=== PATIENT | male | born 1960 | race Hispanic/Latino ===

== ENCOUNTER 2021-01-11 12:59 | Emergency (ER) | payer OTHER, SELFPAY ==
--- NOTE | 2021-01-11 15:09 | RAD REPORT ---
EXAM DESCRIPTION: RAD - Ankle Left 3 View - 01/11/2021 2:42 pm CLINICAL HISTORY: pain/post fall COMPARISON: No comparisons FINDINGS: No fracture, dislocation or periosteal reaction. No joint effusion seen. No joint space na rrowing. Degenerative spurring changes are present at the talonavicular joint as well as the navicula r articulation with the cuneiform bones. Spurring is present at the Achilles attachment to the calcan eus. Anterior and lateral soft tissue swelling is present. IMPRESSION: Degenerative spurring changes are present without fracture identifiable. Soft tissue swelling around the anterior and lateral margins of the ankle joint.
--- NOTE | 2021-01-11 15:11 | RAD REPORT ---
EXAM DESCRIPTION: RAD - Foot Left 3 View - 01/11/2021 2:42 pm CLINICAL HISTORY: pain/postfall COMPARISON: Ankle Left 3 View dated 01/11/2021 FINDINGS: No fracture, dislocation or periosteal reaction. No acute or destructive bony process. De generative spurring changes are present along the articular margins of the talonavicular and navicula r medial cuneiform bones. Minimal plantar spur is present. There is spurring at the Achilles attachme nt to the calcaneus. No air or foreign body in the soft tissues. Anterior soft tissue swelling at the ankle and mid foot a long with lateral ankle soft tissue swelling. IMPRESSION: Degenerative changes are present in the foot as detailed with no acute bone finding. Soft tissue swelling without air or foreign body seen.
--- NOTE | 2021-01-11 16:29 | EDPHYS ---
Physician Documentation [facility] Name: Martha Wilson Age: 60 yrs Sex: Male : 1960 Arrival Date: 01/11/2021 Time: 13:01 Bed 25 Private MD: ED Physician Wilner Luevano HPI: 01/11 13:08 This 60 yrs old Male presents to ER via Wheelchair with complaints of Ankle jmm Injury. 13:08 The patient presents with an injury, pain. Onset: The symptoms/episode began/occurred jmm acutely, just prior to arrival. Associated signs and symptoms: Pertinent positives: swelling. Modifying factors: The symptoms are alleviated by nothing, the symptoms are aggravated by weight bearing, movement. The patient has not experienced similar symptoms in the past. This is a 60-year-old male with history of hypertension, diabetes mellitus the presents emerge department with complaints of left ankle pain after miss stepping and rolling her ankle. Patient denies hitting her head or other injury. Historical: - Allergies: 13:07 No Known Allergies; aa5 - PMHx: 13:07 Hypertensive disorder; Diabetes mellitus; aa5 - Immunization history:: Client reports receiving the 2nd dose of the Covid vaccine. - Social history:: Smoking status: Patient denies any tobacco usage or history of. ROS: 13:08 Constitutional: Negative for fever, chills, and weight loss, Cardiovascular: Negative jmm for chest pain, palpitations, and edema, Respiratory: Negative for shortness of breath, cough, wheezing, and pleuritic chest pain. 13:08 MS/extremity: Positive for injury or acute deformity, pain, swelling. 13:08 All other systems are negative. Exam: 13:08 Constitutional: This is a well developed, well nourished patient who is awake, alert, jmm and in no acute distress. Head/Face: atraumatic. Eyes: EOMI, no conjunctival erythema appreciated ENT: Moist Mucus Membranes Neck: Trachea midline, Supple Chest/axilla: Normal chest wall appearance and motion. Cardiovascular: Regular rate and rhythm. No edema appreciated Respiratory: Normal respirations, no respiratory distress appreciated Abdomen/GI: Non distended, soft Back: Normal ROM Skin: General appearance color normal 13:08 Musculoskeletal/extremity: ROM: intact in all extremities, Swelling noted to the left ankle, full dorsalis pulse, compartments are soft, left lateral malleolar pain on palpation, left fifth metatarsal pain at the base., Neurovascular intact. 13:08 Skin: Appearance: Color: normal in color. Vital Signs: 13:05 BP 161 / 83; Pulse 87; Resp 16 S; Temp 97.4(TE); Pulse Ox 98% on R/A; Weight 64.86 kg aa5 (R); Height 5 ft. 0 in. (152.40 cm) (R); 15:15 BP 152 / 84; Pulse 80; Resp 18; Pulse Ox 99% on R/A; sl2 16:45 BP 148 / 80; Pulse 85; Resp 18; Temp 97.8(O); Pulse Ox 99% on R/A; sl2 13:05 Body Mass Index 27.93 (64.86 kg, 152.40 cm) aa5 MDM: 15:[address] [facility] 16:27 Data reviewed: vital signs, nurses notes. Counseling: I had a detailed discussion with [facility] the patient and/or guardian regarding: the historical points, exam findings, and any diagnostic results supporting the discharge/admit diagnosis, radiology results, the need for outpatient follow up, to return to the emergency department if symptoms worsen or persist or if there are any questions or concerns that arise at home. 01/11 13:08 Order name: Ankle Left 3 View XRAY; Complete Time: 15:12 aa 01/11 13:08 Order name: Foot Left 3 View XRAY; Complete Time: 15:29 [facility] 01/11 15:42 Order name: Posterior Orthoglass Ankle Splint: short leg; Complete Time: 17:[address] [facility] 01/11 15:42 Order name: Crutches; Complete Time: 17:[address] [facility] Administered Medications: 17:46 Not Given (Patient Refused): [place] (HYDROcodone-acetaminophen) 10 mg-325 mg 1 tabs PO sl2 once; RASS on ADMIN: Combtv4, Very Agttd3, Agttd2, Rstlss1, AlertClm0, Drwsy-1, Lt Sdtn-2, Mod Sdtn-3, Dp Sdtn-4, UnArsble-5 Disposition: 18:32 Co-signature as Attending Physician, Wilner Luevano MD. pkl Disposition Summary: 01/11/21 16:28 Discharge Ordered Location: Home [facility] Condition: Stable jm Diagnosis - Sprain of ankle jm Followup: [facility] - With: Nimesh Damon MD - When: 2 - 3 days - Reason: Recheck today's complaints, Continuance of care, Re-evaluation by your physician Discharge Instructions: - Discharge Summary Sheet jm - Ankle Sprain [facility] Forms: - Medication Reconciliation Form [facility] - Thank You Letter [facility] - Antibiotic Education [facility] - Prescription Opioid Use [facility] Prescriptions: - orphenadrine citrate 100 mg Oral Tablet Sustained Release - take 1 tablet by ORAL route 2 times per day As needed; 20 tablet; Refills: 0, jmm Product Selection Permitted Signatures: Dispatcher [employer] Wilner Nazario MD MD pkl Mickail, Joel, PA PA jmm Calderon, Audri, RN RN aa5 June King RN sl2
--- NOTE | 2021-01-11 16:29 | ER ---
Nurse's Notes [facility] Name: Martha Wilson Age: 60 yrs Sex: Male : 1960 Arrival Date: 01/11/2021 Time: 13:01 Bed 25 [facility] MD: Diagnosis: Sprain of ankle Presentation: 01/11 13:05 Chief complaint: Patient states: twisted her ankle and fell today. Pt c/o pain to left aa5 ankle and left foot. Denies any other injuries. Coronavirus screen: At this time, the client does not indicate any symptoms associated with coronavirus-19. Ebola Screen: No symptoms or risks identified at this time. Initial Sepsis Screen: Does the patient meet any 2 criteria? No. Patient's initial sepsis screen is negative. Does the patient have a suspected source of infection? No. Patient's initial sepsis screen is negative. Risk Assessment: Do you want to hurt yourself or someone else? Patient reports no desire to harm self or others. Onset of symptoms was January 11, 2021. 13:05 Acuity: EMERSON 4 aa5 13:05 Method Of Arrival: Wheelchair aa5 Historical: - Allergies: 13:07 No Known Allergies; aa5 - PMHx: 13:07 Hypertensive disorder; Diabetes mellitus; aa5 - Immunization history:: Client reports receiving the 2nd dose of the Covid vaccine. - Social history:: Smoking status: Patient denies any tobacco usage or history of. Screenin:12 Abuse screen: Denies threats or abuse. Nutritional screening: No deficits noted. sl2 Tuberculosis screening: No symptoms or risk factors identified. Never had TB. Fall Risk None identified. No fall in past 12 months (0 pts). No secondary diagnosis (0 pts). No IV (0 pts). Ambulatory Aid- None/Bed Rest/Nurse Assist (0 pts). Gait- Impaired (20 pts.). Mental Status- Oriented to own ability (0 pts). 15:12 Fall Risk Total Tobar Fall Scale indicates No Risk (0-24 pts). sl2 Assessment: 15:12 General: Appears in no apparent distress. uncomfortable, well groomed, well developed, sl2 Behavior is calm, cooperative, appropriate for age. 15:12 Pain: Complains of pain in Left ankle, left foot Pain does not radiate. Pain currently sl2 is 5 out of 10 on a pain scale. at worst was 8 out of 10 on a pain scale. Quality of pain is described as aching, sharp, Pain began. Neuro: No deficits noted. Cardiovascular: No deficits noted. Respiratory: No deficits noted. GI: No deficits noted. : No deficits noted. EENT: No deficits noted. EENT: No deficits noted. Derm: No deficits noted. Musculoskeletal: Reports pain in left foot and left ankle. Vital Signs: 13:05 BP 161 / 83; Pulse 87; Resp 16 S; Temp 97.4(TE); Pulse Ox 98% on R/A; Weight 64.86 kg aa5 (R); Height 5 ft. 0 in. (152.40 cm) (R); 15:15 BP 152 / 84; Pulse 80; Resp 18; Pulse Ox 99% on R/A; sl2 16:45 BP 148 / 80; Pulse 85; Resp 18; Temp 97.8(O); Pulse Ox 99% on R/A; sl2 13:05 Body Mass Index 27.93 (64.86 kg, 152.40 cm) aa5 ED Course: 13:01 Patient arrived in ED. as 13:05 Arm band placed on. aa5 13:06 Triage completed. aa5 14:42 Ankle Left 3 View XRAY In Process Unspecified. EDMS 14:42 Foot Left 3 View XRAY In Process Unspecified. EDMS 15:03 Bello Hatch PA is PHCP. [facility] 15:03 Wilner Luevano MD is Attending Physician. [facility] 15:12 Patient has correct armband on for positive identification. Placed in gown. Bed in low sl2 position. Call light in reach. Side rails up X2. Adult w/ patient. 15:12 No provider procedures requiring assistance completed. Patient did not have IV access sl2 during this emergency room visit. 15:29 June King, ADORE is Primary Nurse. sl2 16:28 Nimesh Damon MD is Referral Physician. [facility] Administered Medications: 17:46 Not Given (Patient Refused): [place] (HYDROcodone-acetaminophen) 10 mg-325 mg 1 tabs PO sl2 once; RASS on ADMIN: Combtv4, Very Agttd3, Agttd2, Rstlss1, AlertClm0, Drwsy-1, Lt Sdtn-2, Mod Sdtn-3, Dp Sdtn-4, UnArsble-5 Outcome: 16:28 Discharge ordered by . paloma 17:44 Discharged to home via wheelchair, with crutches, with family. sl2 17:44 Condition: stable 17:44 Discharge instructions given to patient, family, Instructed on discharge instructions, follow up and referral plans. no drinking with medication, medication usage, Demonstrated understanding of instructions, follow-up care, medications, Prescriptions given X 1. 17:45 Patient left the ED. sl2 Signatures: Dispatcher [employer] EDMS Bello Hatch PA PA jmm Martinez, Amelia as Calderon, Audri, RN RN aa5 June King RN RN sl2 Corrections: (The following items were deleted from the chart) 13:08 13:05 Chief complaint: Patient states: twisted her ankle today. Pt c/o pain to left aa5 ankle and left foot. Denies any other injuries. aa5
[2021-01-11 17:59] VITALS: BP 161/83; TEMP 97.4; O2SAT 98
== END 2021-01-11 17:45 | disposition home or self-care (01) ==
LOC: ER 12:59
PROC: 2W3RX1Z Immobilization of Left Lower Leg using Splint (ICD-10-PCS; principal; 2021-01-11)
DX: S93.402A Sprain of unspecified ligament of left ankle, initial encounter (principal); W01.0XXA Fall on same level from slipping, tripping and stumbling without subsequent striking against object, initial encounter
CPT/HCPCS: 99283

== ENCOUNTER 2023-02-09 06:48 | Emergency (ER) | payer SELFPAY ==
--- OUTSIDE RECORDS SUMMARY | 2023-02-09 06:52 | XMS REPORT | Continuity of Care Document ---
Author Name Unknown Address [address] [facility] [address] [place] [address] [facility] [address] [facility] [address] [place] [address] Care Team Providers Care Account Executive Trainee Name Role Phone Gunner [place], [facility] Primary Care Physician [phone] Allergies, Adverse Reactions, Alerts Allergy Name Allergy Type Status Severity Reaction(s) Onset Date Inactive Date Treating Clinician Comments Source [place] - Intra[facility] o[facility] to adverse reaction to drug Active 09-13 00:00: 00 Medications Ordered Medication Name Filled Medication Name Start Date Stop Date Current Medication? Ordering Clinician Indication Dosage Frequency Signature (SIG) Comments Components Source Dose Unknown 10-05 00:00: 00 No losartan 100 mg tablet 10-05 00:00: 00 No 1mg Dose Unknown 10-05 00:00: 00 No losartan 50 mg tablet 10-05 00:00: 00 No 1mg losartan 25 mg tablet 10-05 00:00: 00 No 1mg losartan 50 mg tablet 10-05 00:00: 00 No 1mg Dose Unknown 10-05 00:00: 00 No Dose Unknown 10-05 00:00: 00 No metformin 850 mg tablet 10-05 00:00: 00 No 1mg atorvastati n 80 mg tablet 10-05 00:00: 00 No 1mg gabapentin 300 mg capsule 10-05 00:00: 00 No 1mg TAKE 1 TABLET TWICE DAILY. 10-05 00:00: 00 No 5 TAKE 1 TABLET 3 TIMES DAILY WITH MEALS. 10-05 00:00: 00 No 850 Dose Unknown 10-05 00:00: 00 No amlodipine 5 mg tablet 8 00:00: 00 No 1mg losartan 100 mg tablet 10-05 00:00: 00 No 1mg amlodipine 5 mg tablet 10-05 00:00: 00 No 1mg losartan 50 mg tablet 10-05 00:00: 00 No 1mg losartan 25 mg tablet 10-05 00:00: 00 No 1mg losartan 50 mg tablet 10-05 00:00: 00 No 1mg glipizide 5 mg tablet 10-05 00:00: 00 No 1mg glipizide 5 mg tablet 10-05 00:00: 00 No 1mg metformin 850 mg tablet 10-05 00:00: 00 No 1mg atorvastati n 80 mg tablet 10-05 00:00: 00 No 1mg gabapentin 300 mg capsule 10-05 00:00: 00 No 1mg TAKE 1 TABLET TWICE DAILY. 10-05 00:00: 00 No 5 TAKE 1 TABLET 3 TIMES DAILY WITH MEALS. 10-05 00:00: 00 No 850 TAKE 1 TABLET TWICE DAILY. 10-05 00:00: 00 No 5 losartan 100 mg tablet 1- 00:00: 00 No 1mg amlodipine 5 mg tablet 1-05 00:00: 00 No 1mg glipizide 5 mg tablet 1-05 00:00: 00 No 1mg metformin 850 mg tablet 1-05 00:00: 00 No 1mg atorvastati n 80 mg tablet 1- 00:00: 00 No 1mg losartan 100 mg tablet 1-05 00:00: 00 No 1mg amlodipine 5 mg tablet 1- 00:00: 00 No 1mg glipizide 5 mg tablet 1-05 00:00: 00 No 1mg metformin 850 mg tablet 1-05 00:00: 00 No 1mg atorvastati n 80 mg tablet 2022-0 1-05 00:00: 00 No 1mg losartan 100 mg tablet 2020-03 2- 00:00: 00 No 1mg amlodipine 5 mg tablet 2020-03 2- 00:00: 00 No 1mg glipizide 5 mg tablet 2020-03 2- 00:00: 00 No 1mg metformin 850 mg tablet 2020-03 2 00:00: 00 No 1mg atorvastati n 80 mg tablet 2020-03 2- 00:00: 00 No 1mg losartan 100 mg tablet 2020-03 2 00:00: 00 No 1mg amlodipine 5 mg tablet 2020-03 2 00:00: 00 No 1mg glipizide 5 mg tablet 2020-03 2 00:00: 00 No 1mg metformin 850 mg tablet 2020-03 2 00:00: 00 No 1mg atorvastati n 80 mg tablet 2020-03 2 00:00: 00 No 1mg losartan 50 mg tablet 2020-03 0-18 00:00: 00 No 1mg losartan 25 mg tablet 2020-03 0-18 00:00: 00 No 1mg atorvastati n 80 mg tablet 2020-03 0-18 00:00: 00 No 1mg losartan 50 mg tablet 2020-03 0-18 00:00: 00 No 1mg losartan 25 mg tablet 2020-03 0-18 00:00: 00 No 1mg atorvastati n 80 mg tablet 2020-03 0-18 00:00: 00 No 1mg glipizide 5 mg tablet 2020-03 0-04 00:00: 00 No 1mg losartan 50 mg tablet 2020-03 0-04 00:00: 00 No 1mg metformin 850 mg tablet 2020-03 0-04 00:00: 00 No 1mg gabapentin 300 mg capsule 2020-03 0-04 00:00: 00 No 1mg glipizide 5 mg tablet 2020-03 0-04 00:00: 00 No 1mg losartan 50 mg tablet 2020-03 0-04 00:00: 00 No 1mg metformin 850 mg tablet 2020-03 0-04 00:00: 00 No 1mg gabapentin 300 mg capsule 2020-03 0-04 00:00: 00 No 1mg losartan 25 mg tablet 08-30 00:00: 00 No 1mg losartan 25 mg tablet 08-30 00:00: 00 No 1mg glipizide 5 mg tablet 08-22 00:00: 00 No 1mg Macrobid 100 mg capsule 08-22 00:00: 00 No 1mg glipizide 5 mg tablet 08-22 00:00: 00 No 1mg Macrobid 100 mg capsule 08-22 00:00: 00 No 1mg lisinopril 40 mg tablet 08-19 00:00: 00 No 1mg lisinopril 40 mg tablet 08-19 00:00: 00 No 1mg losartan 25 mg tablet 08-19 00:00: 00 No 1mg metformin 850 mg tablet 08-19 00:00: 00 No 1mg atorvastati n 80 mg tablet 08-19 00:00: 00 No 1mg gabapentin 300 mg capsule 08-19 00:00: 00 No 1mg losartan 25 mg tablet 08-19 00:00: 00 No 1mg metformin 850 mg tablet 08-19 00:00: 00 No 1mg atorvastati n 80 mg tablet 08-19 00:00: 00 No 1mg gabapentin 300 mg capsule 08-19 00:00: 00 No 1mg atorvastati n 80 mg tablet -17 00:00: 00 No 1mg atorvastati n 80 mg tablet -17 00:00: 00 No 1mg lisinopril 40 mg tablet 3-15 00:00: 00 No 1mg atorvastati n 20 mg tablet 3-15 00:00: 00 No 1mg metformin 850 mg tablet 3-15 00:00: 00 No 1mg gabapentin 300 mg capsule 3-15 00:00: 00 No 1mg lisinopril 40 mg tablet 3-15 00:00: 00 No 1mg atorvastati n 20 mg tablet 3-15 00:00: 00 No 1mg metformin 850 mg tablet 05-17 00:00: 00 No 1mg gabapentin 300 mg capsule 05-17 00:00: 00 No 1mg metformin 850 mg tablet 2019-03 00:00: 00 No 1mg metformin 850 mg tablet 2019-03 00:00: 00 No 1mg metformin 850 mg tablet 2019-03 00:00: 00 No 1mg metformin 850 mg tablet 2019-03 00:00: 00 No 1mg gabapentin 300 mg capsule 2019-03 00:00: 00 No 1mg lisinopril 40 mg tablet 2019-03 00:00: 00 No 1mg gabapentin 300 mg capsule 2019-03 00:00: 00 No 1mg lisinopril 40 mg tablet 2019-03 00:00: 00 No 1mg atorvastati n 20 mg tablet 2019-03 020 00:00: 00 No 1mg atorvastati n 20 mg tablet 2019-03 020 00:00: 00 No 1mg lisinopril 20 mg tablet 2019-03 017 00:00: 00 No 1mg metformin 850 mg tablet 2019-03 017 00:00: 00 No 1mg metformin 850 mg tablet 2019-03 017 00:00: 00 No 1mg gabapentin 100 mg capsule 2019-03 017 00:00: 00 No 1mg lisinopril 20 mg tablet 2019-03 017 00:00: 00 No 1mg metformin 850 mg tablet 2019-03 017 00:00: 00 No 1mg metformin 850 mg tablet 2019-03 017 00:00: 00 No 1mg gabapentin 100 mg capsule 2019-03 017 00:00: 00 No 1mg Vital Signs Vital Name Observation Time Observation Value Comments S ource BP Systolic 2022-01-02 08:18:00 148 mm[Hg] BP Diastolic 2022-01-02 08:18:00 81 mm[Hg] Weight Measured 2022-01-02 08:18:00 148.60 pounds Height Measured 2022-01-02 08:18:00 61.02 inches Body Temperature 2022-01-02 08:18:00 97.30 degrees Heart Rate 2022-01-02 08:18:00 79.00 /min Respiratory Rate 2022-01-02 08:18:00 16.00 /min BP Systolic 2021-10-05 08:08:00 186 mm[Hg] BP Diastolic 2021-10-05 08:08:00 84 mm[Hg] Weight Measured 2021-10-05 08:08:00 148.20 pounds Height Measured 2021-10-05 08:08:00 61.02 inches Body Temperature 2021-10-05 08:08:00 98.30 degrees Heart Rate 2021-10-05 08:08:00 78.00 /min Respiratory Rate 2021-10-05 08:08:00 18.00 /min BP Systolic 2021-03-09 14:47:00 148.8 mm[Hg] BP Diastolic 2021-03-09 14:47:00 80 mm[Hg] Weight Measured 2021-03-09 14:47:00 146.40 pounds Height Measured 2021-03-09 14:47:00 61.02 inches Body Temperature 2021-03-09 14:47:00 98.00 degrees Heart Rate 2021-03-09 14:47:00 91.00 /min Respiratory Rate 2021-03-09 14:47:00 20.00 /min Height Measured 2021-02-14 16:21:00 61.02 inches Body Temperature 2021-02-14 16:21:00 98.20 degrees Heart Rate 2021-02-14 16:21:00 85.00 /min Respiratory Rate 2021-02-14 16:21:00 21.00 /min BP Systolic 2021-02-14 16:21:00 165 mm[Hg] BP Diastolic 2021-02-14 16:21:00 72 mm[Hg] Weight Measured 2021-02-14 16:21:00 149.20 pounds BP Systolic 2020-12-20 13:11:00 165 mm[Hg] BP Diastolic 2020-12-20 13:11:00 90 mm[Hg] Weight Measured 2020-12-20 13:11:00 146.00 pounds Height Measured 2020-12-20 13:11:00 61.02 inches Body Temperature 2020-12-20 13:11:00 98.40 degrees Heart Rate 2020-12-20 13:11:00 90.00 /min Respiratory Rate 2020-12-20 13:11:00 17.00 /min BP Systolic 2020-12-10 08:08:00 167 mm[Hg] BP Diastolic 2020-12-10 08:08:00 84 mm[Hg] Weight Measured 2020-12-10 08:08:00 143.20 pounds Height Measured 2020-12-10 08:08:00 61.02 inches Body Temperature 2020-12-10 08:08:00 98.30 degrees Heart Rate 2020-12-10 08:08:00 87.00 /min Respiratory Rate 2020-12-10 08:08:00 17.00 /min BP Systolic 2020-12-06 16:30:00 187 mm[Hg] BP Diastolic 2020-12-06 16:30:00 83 mm[Hg] Weight Measured 2020-12-06 16:30:00 147.20 pounds Height Measured 2020-12-06 16:30:00 61.02 inches Body Temperature 2020-12-06 16:30:00 98.00 degrees Heart Rate 2020-12-06 16:30:00 99.00 /min Respiratory Rate 2020-12-06 16:30:00 17.00 /min BP Systolic 2020-08-30 13:59:00 150 mm[Hg] BP Diastolic 2020-08-30 13:59:00 72 mm[Hg] Weight Measured 2020-08-30 13:59:00 143.20 pounds Height Measured 2020-08-30 13:59:00 61.02 inches Body Temperature 2020-08-30 13:59:00 98.20 degrees Heart Rate 2020-08-30 13:59:00 98.00 /min Respiratory Rate 2020-08-30 13:59:00 24.00 /min BP Systolic 2020-08-19 13:21:00 157 mm[Hg] BP Diastolic 2020-08-19 13:21:00 88 mm[Hg] Weight Measured 2020-08-19 13:21:00 142.20 pounds Height Measured 2020-08-19 13:21:00 61.02 inches Body Temperature 2020-08-19 13:21:00 98.40 degrees Heart Rate 2020-08-19 13:21:00 94.00 /min Respiratory Rate 2020-08-19 13:21:00 20.00 /min BP Systolic 2020-05-17 13:33:00 157 mm[Hg] BP Diastolic 2020-05-17 13:33:00 73 mm[Hg] Weight Measured 2020-05-17 13:33:00 139.20 pounds Height Measured 2020-05-17 13:33:00 61.02 inches Body Temperature 2020-05-17 13:33:00 99.50 degrees Heart Rate 2020-05-17 13:33:00 89.00 /min Respiratory Rate 2020-05-17 13:33:00 18.00 /min BP Systolic 2020-01-10 13:13:00 162 mm[Hg] BP Diastolic 2020-01-10 13:13:00 80 mm[Hg] Weight Measured 2020-01-10 13:13:00 136.00 pounds Height Measured 2020-01-10 13:13:00 61.02 inches Body Temperature 2020-01-10 13:13:00 98.70 degrees Heart Rate 2020-01-10 13:13:00 96.00 /min Respiratory Rate 2020-01-10 13:13:00 17.00 /min Plan of Care Planned Activity Planned Date Details Comments Source Goal Plan of Care Note [code = 85185-4] Goal Plan of Care Note [code = 65814-4] Goal Plan of Care Note [code = 57248-7] Goal Plan of Care Note [code = 62580-6] Goal Plan of Care Note [code = 97260-1] Goal Plan of Care Note [code = 96967-9] Goal Plan of Care Note [code = 28497-9] Goal Plan of Care Note [code = 20325-3] Goal Plan of Care Note [code = 22038-8] Goal Plan of Care Note [code = 30530-7] Goal Plan of Care Note [code = 96528-8] Goal Plan of Care Note [code = 11629-1] Goal Plan of Care Note [code = 78483-0] Goal Plan of Care Note [code = 23621-3] Goal Plan of Care Note [code = 31347-3] Goal Plan of Care Note [code = 95838-2] Goal Plan of Care Note [code = 47769-4] Goal Plan of Care Note [code = 09831-5] Goal Plan of Care Note [code = 31295-9] Goal Plan of Care Note [code = 94119-3] Goal Plan of Care Note [code = 44061-3] Goal Plan of Care Note [code = 08003-3] Goal Plan of Care Note [code = 84824-3] Goal Plan of Care Note [code = 19884-6] Goal Plan of Care Note [code = 93984-2] Goal Plan of Care Note [code = 56523-2] Goal Plan of Care Note [code = 96182-9] Goal Plan of Care Note [code = 37942-6] Encounters Start Date/Time End Date/Time Encounter Type Admission Type Attending [facility] Facility Care Department Encounter ID Source 2022-12-14 13:33:52 2022-12-14 13:33:52 Outpatient [facility] [id number] Domingo Singh 2022-12-12 08:00:18 2022-12-12 08:00:18 Outpatient [id number] Domingo Singh 2022-12-11 16:06:22 2022-12-11 16:06:22 Outpatient [id number] Domingo Singh 2022-07-06 14:53:34 2022-07-06 14:53:34 Outpatient [id number] Domingo Singh 2022-06-27 14:50:54 2022-06-27 14:50:54 Outpatient [facility] [id number] Domingo Reyes Francisco 2022-06-26 16:25:02 2022-06-26 16:25:02 Outpatient [id number] Domingo Singh 2022-04-04 07:59:52 2022-04-04 07:59:52 Outpatient [facility] [id number] Domingo Singh 2022-02-07 13:22:51 2022-02-07 13:22:51 Outpatient [facility] [id number] Domingo Singh 2022-01-06 14:35:04 2022-01-06 14:35:04 Outpatient [id number] Domingo Singh 2022-01-02 08:12:41 2022-01-02 08:12:41 Outpatient [facility] [id number] Domingo Singh 2022-01-02 00:00:00 2022-01-02 00:00:00 Outpatient Visit [id number] 2021-10-05 00:00:00 2021-10-05 00:00:00 Outpatient Visit [id number] Results Test Description Test Time Test Comments Results Result Co mments Source LIPID [id number] 08:14:40* Test Item Value Reference Range Interpretation Comme nts CHOLESTEROL (test code = 2210) 177 MG/DL <200 TRIGLYCERIDES (test code = 2232) 119 MG/DL <150 HDL CHOLESTEROL (test code = 2220) 58 MG/DL >39 CALC LDL CHOL (test code = 2237) 97 MG/DL <100 NOTE: CALCULATED LDL IS BASED ON CARL-PADILLA METHOD WHICHINCLUDES ADJUSTABLE TRIGLYCERIDE:VLDL CHOLESTEROL RATIO.THIS FACTOR VARIES BY MEASURED TRIGLYCERIDE AND NON-HDLCHOLESTEROL CONCENTRATIONS WITH INCREASED CALCULATED LDL SEENIN HIGHER TRIGLYCERIDE OR LOWER NON-HDL SPECIMENS. FOR MOREINFORMATION, SEE CLIENT ANNOUNCEMENT AT [email or web address] RISK RATIO LDL/HDL (test code = 2238) 1.67 RATIO <3.22 HEMOGLOBIN [id number] 04:03:15* Test Item Value Reference Range Interpretation Comme nts HEMOGLOBIN A1c (test code = 80840) 10.6 % 4.2-5.6 [facility] [employer] GUIDELINES FOR HGB A1C: PREDIABETES/INCREASED RISK . . . . . . . 5.7-6.4% DIAGNOSIS OF DIABETES . . . . . . . . . >=6.5% WITH CONFIRMATION OR APPROPRIATE SYMPTOMS NOTE: ASSAY MAY BE AFFECTED BY HEMOGLOBINOPATHIES (SICKLE CELL ANEMIA, S-C DISEASE, OTHERS) OR ARTIFICIALLY LOWERED BY DECREASED RED CELL SURVIVAL (HEMOLYTIC ANEMIAS, BLOOD LOSS, ETC.). CONSIDER ALTERNATE TESTING OR LABORATORY CONSULTATION. UNLESS OTHERWISE INDICATED, ALL TESTING PERFORMED AT [facility] [address] [place] [address] WATER PROJECT MANAGER: PETER ISABEL M.D. CLIA NUMBER [id number] [place]. [id number] HEMOGLOBIN [id number] 04:31:47* Test Item Value Reference Range Interpretation Comme nts HEMOGLOBIN A1c (test code = 05272) 9.9 % 4.2-5.6 H [employer] GUIDELINES FOR HGB A1C: PREDIABETES/INCREASED RISK . . . . . . . 5.7-6.4% DIAGNOSIS OF DIABETES . . . . . . . . . >=6.5% WITH CONFIRMATION OR APPROPRIATE SYMPTOMS NOTE: ASSAY MAY BE AFFECTED BY HEMOGLOBINOPATHIES (SICKLE CELL ANEMIA, S-C DISEASE, OTHERS) OR ARTIFICIALLY LOWERED BY DECREASED RED CELL SURVIVAL (HEMOLYTIC ANEMIAS, BLOOD LOSS, ETC.). CONSIDER ALTERNATE TESTING OR LABORATORY CONSULTATION. ALBUMIN/CREATININE RATIO, URINE, [id number] 04:16:19* Test Item Value Reference Range Interpretation Comme nts CREATININE, URINE, CONC. (test code = 2072) 17.6 MG/DL NOT ESTAB ALBUMIN, URINE, RANDOM (test code = 20618) <0.2 MG/DL NOT ESTAB CALC ALBUMIN/CREAT, RND (test code = 80352) <12 MG/G <30 Note: Albumin/Cr eatinine ratio reference interval reflects ADA and NKF guidelines. [facility] has important pathology staff changes effective 05/03/2022. New pathology staff will provide uninterrupted, excellent patient care and clinical consultation. See URL: [email or web address]. UNLESS OTHERWISE INDICATED, ALL TESTING PERFORMED AT [facility] [address] [place] [address] WATER PROJECT MANAGER: PETER ISABEL M.D. CLIA NUMBER [id number] [place] [id number] HEMOGLOBIN [id number] 03:59:53* Test Item Value Reference Range Interpretation Comme nts HEMOGLOBIN A1c (test code = 65327) 8.7 % 4.2-5.6 H [employer] GUIDELINES FOR HGB A1C: PREDIABETES/INCREASED RISK . . . . . . . 5.7-6.4% DIAGNOSIS OF DIABETES . . . . . . . . . >=6.5% WITH CONFIRMATION OR APPROPRIATE SYMPTOMS NOTE: ASSAY MAY BE AFFECTED BY HEMOGLOBINOPATHIES (SICKLE CELL ANEMIA, S-C DISEASE, OTHERS) OR ARTIFICIALLY LOWERED BY DECREASED RED CELL SURVIVAL (HEMOLYTIC ANEMIAS, BLOOD LOSS, ETC.). CONSIDER ALTERNATE TESTING OR LABORATORY CONSULTATION. UNLESS OTHERWISE INDICATED, ALL TESTING PERFORMED [facility] [address] [place] [address] WATER PROJECT MANAGER: AIDAN CASTORENA M.D. CLIA NUMBER [id number] [facility] [place]. [id number] LIPID [id number] 05:14:21* Test Item Value Reference Range Interpretation Comme nts CHOLESTEROL (test code = 2210) 175 MG/DL <200 TRIGLYCERIDES (test code = 2232) 89 MG/DL <150 HDL CHOLESTEROL (test code = 2220) 66 MG/DL >39 CALC LDL CHOL (test code = 2237) 91 MG/DL <100 NOTE: CALCULATED LDL IS BASED ON CARL-PADILLA METHOD WHICHINCLUDES ADJUSTABLE TRIGLYCERIDE:VLDL CHOLESTEROL RATIO.THIS FACTOR VARIES BY MEASURED TRIGLYCERIDE AND NON-HDLCHOLESTEROL CONCENTRATIONS WITH INCREASED CALCULATED LDL SEENIN HIGHER TRIGLYCERIDE OR LOWER NON-HDL SPECIMENS. FOR MOREINFORMATION, SEE CLIENT ANNOUNCEMENT AT [email or web address] RISK RATIO LDL/HDL (test code = 2238) 1.38 RATIO <3.22 COMPREHENSIVE METABOLIC [id number] 05:14:21* Test Item Value Reference Range Interpretation Comme nts GLUCOSE (test code = 2217) 123 MG/DL 70-99 H BUN (test code = 2208) 13 MG/DL 8-23 CREATININE (test code = 2214) 0.46 MG/DL 0.60-1.30 L eGFR (2020 CKD-EPI) (test code = 86846) 108 ML/MIN/1.73 >60 CALC BUN/CREAT (test code = 2235) 28 RATIO 6-28 SODIUM (test code = 2231) 139 MEQ/L 133-146 POTASSIUM (test code = 2228) 4.2 MEQ/L 3.5-5.4 CHLORIDE (test code = 2215) 100 MEQ/L 95-107 CARBON DIOXIDE (test code = 2206) 28 MEQ/L 19-31 CALCIUM (test code = 2208) 9.6 MG/DL 8.5-10.5 PROTEIN, TOTAL (test code = 2229) 7.5 G/DL 6.1-8.3 ALBUMIN (test code = 2201) 4.3 G/DL 3.5-5.2 CALC GLOBULIN (test code = 2240) 3.2 G/DL 1.9-3.7 CALC A/G RATIO (test code = 223) 1.3 RATIO 1.0-2.6 BILIRUBIN, TOTAL (test code = 7) 0.6 MG/DL See_Comment [Automated me ssage] The system which generated this result transmitted reference range: <=1.2. The reference range was not used to interpret this result as normal/abnormal. ALKALINE PHOSPHATASE (test code = 2203) 120 U/L 40-140 AST (test code = 8) 38 U/L 9-40 ALT (test code = 9) 38 U/L 5-40 UNLESS OTHERWISE INDICATED, ALL TESTING PERFORMED [facility] [address] [place] [address] WATER PROJECT MANAGER: AIDAN CASTORENA M.D. CLIA NUMBER [id number] [facility] [place]. [id number] HEMOGLOBIN [id number] 03:37:51* Test Item Value Reference Range Interpretation Comme [facility] HEMOGLOBIN A1c (test code = 38157) 8.9 % 4.2-5.6 H [employer] GUIDELINES FOR HGB A1C: PREDIABETES/INCREASED RISK . . . . . . . 5.7-6.4% DIAGNOSIS OF DIABETES . . . . . . . . . >=6.5% WITH CONFIRMATION OR APPROPRIATE SYMPTOMS NOTE: ASSAY MAY BE AFFECTED BY HEMOGLOBINOPATHIES (SICKLE CELL ANEMIA, S-C DISEASE, OTHERS) OR ARTIFICIALLY LOWERED BY DECREASED RED CELL SURVIVAL (HEMOLYTIC ANEMIAS, BLOOD LOSS, ETC.). CONSIDER ALTERNATE TESTING OR LABORATORY CONSULTATION. HEPATITIS PANEL, [id number] 03:29:01* Test Item Value Reference Range Interpretation Comme nts HEPATITIS A IgM (test code = 51157) NON-REACTIVE NON-REACTIVE HEPATITIS B CORE IgM (test code = 4644) NON-REACTIVE NON-REACTIVE HEPATITIS B SURF AG (test code = 2739) NON-REACTIVE NON-REACTIVE HEPATITIS C ANTIBODY (test code = 4675) NON-REACTIVE NON-REACTIVE INTERPRETATION HEPATITIS A: (test code = 2552) (NOTE) Hepatitis A sero logy shows no evidence of acute hepatitis A. INTERPRETATION HEPATITIS B: (test code = 94677) (NOTE) Hepatitis B sero logy shows no evidence of acute hepatitis B andno indication of exposure to hepatitis B virus in the previous natalie eight months. INTERPRETATION HEPATITIS C: (test code = 69472) (NOTE) Hepatitis C sero logy shows no evidence of exposure to hepatitisC virus at this time. It can take up to 12 months after exposure tothe hepatitis C virus for antibodies to become detectable in the blood in certain patients. UNLESS OTHERWISE INDICATED, ALL TESTING PERFORMED [facility] [address] [place] [address] WATER PROJECT MANAGER: AIDAN CASTORENA M.D. IA NUMBER [id number] [facility] [place]. [id number] ACUTE HEPATITIS [id number] 00:00:00* Test Item Value Reference Range Interpretation Comme nts HEPATITIS A IgM (test code = 84478) NON-REACTIVE HEPATITIS B CORE IgM (test c ode = 4644) NON-REACTIVE HEPATITIS B SURF AG (test co de = 2739) NON-REACTIVE HEPATITIS C ANTIBODY (test c ode = 4675) NON-REACTIVE INTERPRETATION HEPATITIS A: (test code = 2552) (NOTE) INTERPRETATION HEPATITIS B: (test code = 91913) (NOTE) INTERPRETATION HEPATITIS C: (test code = 70789) (NOTE) ACUTE HEPATITIS [id number] 00:00:00* Test Item Value Reference Range Interpretation Comme nts HEPATITIS A IgM (test code = 70730) NON-REACTIVE HEPATITIS B CORE IgM (test c ode = 4644) NON-REACTIVE HEPATITIS B SURF AG (test co de = 2739) NON-REACTIVE HEPATITIS C ANTIBODY (test c ode = 4675) NON-REACTIVE INTERPRETATION HEPATITIS A: (test code = 2552) (NOTE) INTERPRETATION HEPATITIS B: (test code = 91316) (NOTE) INTERPRETATION HEPATITIS C: (test code = 66980) (NOTE) ACUTE HEPATITIS [id number] 00:00:00* Test Item Value Reference Range Interpretation Comme nts HEPATITIS A IgM (test code = 79113) NON-REACTIVE HEPATITIS B CORE IgM (test c ode = 4644) NON-REACTIVE HEPATITIS B SURF AG (test co de = 2739) NON-REACTIVE HEPATITIS C ANTIBODY (test c ode = 4675) NON-REACTIVE INTERPRETATION HEPATITIS A: (test code = 2552) (NOTE) INTERPRETATION HEPATITIS B: (test code = 69539) (NOTE) INTERPRETATION HEPATITIS C: (test code = 24784) (NOTE) CBC W/AUTO DIFF WITH [id number] 17:24:13* Test Item Value Reference Range Interpretation Comme nts WBC (test code = 1001) 8.2 K/UL 3.5-11.0 RBC (test code = 1002) 4.45 M/UL 3.80-5.40 HEMOGLOBIN (test code = 1003) 12.4 G/DL 11.5-15.5 HEMATOCRIT (test code = 1004) 37.7 % 34.0-45.0 MCV (test code = 1005) 84.7 fL 80.0-99.0 MCH (test code = 1006) 27.9 PG 25.0-33.0 MCHC (test code = 1007) 32.9 G/DL 31.0-36.0 RDW (test code = 1038) 13.0 % 11.5-15.0 NEUTROPHILS (test code = 1008) 57.7 % NOTE: EFFECTIVE 01/24/2021, REFERENCE INTERVALS AND FLAGGING FORRELATIVE (%) WBC DIFFERENTIAL WILL BE ELIMINATED REDUNDANT TOABSOLUTE COUNTS.SEE [email or web address] LYMPHOCYTES (test code = 1010) 31.5 % MONOCYTES (test code = 1011) 7.4 % EOSINOPHILS (test code = 1012) 2.5 % BASOPHILS (test code = 1013) 0.7 % IMMATURE GRANYLOCYTES (test code = 1036) 0.2 % NUCLEATED RBCS (test code = 1065) 0.0 /100 WBC'S See_Comment [Automated message] The system which generated this result transmitted reference range: 0.0. The reference range was not used to interpret this result as normal/abnormal. PLATELET COUNT (test code = 1015) 139 K/UL 130-400 ABSOLUTE NEUTROPHILS (test code = 1066) 4.71 K/UL 1.50-7.50 ABSOLUTE LYMPHOCYTES (test code = 1067) 2.57 K/UL 1.00-4.00 ABSOLUTE MONOCYTES (test code = 1068) 0.60 K/UL 0.20-1.00 ABSOLUTE EOSINOPHILS (test code = 1040) 0.20 K/UL 0.00-0.50 ABSOLUTE BASOPHILS (test code = 1069) 0.06 K/UL 0.00-0.20 ABS IMMATURE GRANULOCYTES (test code = 1020) 0.02 K/UL 0.00-0.10 ABS NUCLEATED RBCS (test code = 92636) 0.00 K/UL 0.00-0.11 COMMENTS (test code = 1016) (NOTE) SEE ADDITIONAL COMMENTS BELOW: PLATELET CLUMPING PRESENT; TRUE PLATELET COUNT MAY BE HIGHER. ALBUMIN/CREATININE RATIO, URINE, [id number] 05:44:56* Test Item Value Reference Range Interpretation Comme nts CREATININE, URINE, CONC. (test code = 2072) 66.2 MG/DL NOT ESTAB Reference interv al for random urine samples has not been established. ALBUMIN, URINE, RANDOM (test code = 96104) 0.5 MG/DL Note: Test name is changed to Urine Albumin from Microalbumin in accordance with ADA and NKF Guidelines, and Albumin/Creatinine ratio reference interval reflects those Guidelines. Analytic methodology is unchanged. No reference interval for Random Urine Albumin is available. CALC ALBUMIN/CREAT, RND (test code = 52694) 8 MG/G <30 UNLESS OTHERWISE INDICATED, ALL TESTING [facility] [address] [place] [address] WATER PROJECT MANAGER: AIDAN CASTORENA M.D. CLIA NUMBER [id number] [facility] [place]. [id number] COMPREHENSIVE METABOLIC [id number] 04:17:22* Test Item Value Reference Range Interpretation Comme nts GLUCOSE (test code = 2217) 228 MG/DL 70-99 H BUN (test code = 2208) 18 MG/DL 8-23 CREATININE (test code = 2214) 0.60 MG/DL 0.60-1.30 EFFECTIVE 02/14/2021, [facility] HAS IMPLEMENTED THE NKF-ASN RECOMMENDED KD-EPI EGFR REFIT CALCULATION THAT DOES NOT INCLUDE A COEFFICIENT FORRACE. FOR MORE INFORMATION, SEE ANNOUNCEMENT [email or web address] eGFR (2020 CKD-EPI) (test code = 36207) 101 ML/MIN/1.73 >60 CALC BUN/CREAT (test code = 2234) 30 RATIO 6-28 H SODIUM (test code = 2230) 141 MEQ/L 133-146 POTASSIUM (test code = 2227) 3.8 MEQ/L 3.5-5.4 CHLORIDE (test code = 2214) 102 MEQ/L 95-107 CARBON DIOXIDE (test code = 2205) 27 MEQ/L 19-31 CALCIUM (test code = 2208) 10.0 MG/DL 8.5-10.5 PROTEIN, TOTAL (test code = 2228) 7.6 G/DL 6.1-8.3 ALBUMIN (test code = 2200) 4.3 G/DL 3.5-5.2 CALC GLOBULIN (test code = 2239) 3.3 G/DL 1.9-3.7 CALC A/G RATIO (test code = 2233) 1.3 RATIO 1.0-2.6 BILIRUBIN, TOTAL (test code = 2206) 0.2 MG/DL See_Comment [Automated me ssage] The system which generated this result transmitted reference range: <=1.2. The reference range was not used to interpret this result as normal/abnormal. ALKALINE PHOSPHATASE (test code = 2203) 200 U/L 40-140 H AST (test code = 2217) 88 U/L 9-40 H ALT (test code = 2218) 134 U/L 5-40 H HEMOGLOBIN [id number] 04:16:57* Test Item Value Reference Range Interpretation Comme nts HEMOGLOBIN A1c (test code = 79180) 7.0 % 4.2-5.6 H [employer] GUIDELINES FOR HGB A1C: PREDIABETES/INCREASED RISK . . . . . . . 5.7-6.4% DIAGNOSIS OF DIABETES . . . . . . . . . >=6.5% WITH CONFIRMATION OR APPROPRIATE SYMPTOMS NOTE: ASSAY MAY BE AFFECTED BY HEMOGLOBINOPATHIES (SICKLE CELL ANEMIA, S-C DISEASE, OTHERS) OR ARTIFICIALLY LOWERED BY DECREASED RED CELL SURVIVAL (HEMOLYTIC ANEMIAS, BLOOD LOSS, ETC.). CONSIDER ALTERNATE TESTING OR LABORATORY CONSULTATION. MICROALBUMIN/CREATININE, RANDOM AND [id number] 00:00:00* Test Item Value Reference Range Interpretation Comme nts CREATININE, URINE, CONC. (te st code = 2071) 66.2 MG/DL ALBUMIN, URINE, RANDOM (test code = 30032) 0.5 MG/DL CALC ALBUMIN/CREAT, RND (lyndsey t code = 41345) 8 MG/G MICROALBUMIN/CREATININE, RANDOM AND [id number] 00:00:00* Test Item Value Reference Range Interpretation Comme nts CREATININE, URINE, CONC. (te st code = 2071) 66.2 MG/DL ALBUMIN, URINE, RANDOM (test code = 47716) 0.5 MG/DL CALC ALBUMIN/CREAT, RND (lyndsey t code = 06658) 8 MG/G CBC W/AUTO [id number] 00:00:00* Test Item Value Reference Range Interpretation Comme nts WBC (test code = 1001) 8.2 K/UL RBC (test code = 1002) 4.45 M/UL HEMOGLOBIN (test code = 1003) 12.4 G/DL HEMATOCRIT (test code = 1004) 37.7 % MCV (test code = 1005) 84.7 fL MCH (test code = 1006) 27.9 PG MCHC (test code = 1007) 32.9 G/DL RDW (test code = 1038) 13.0 % NEUTROPHILS (test code = 1008) 57.7 % LYMPHOCYTES (test code = 1010) 31.5 % MONOCYTES (test code = 1011) 7.4 % EOSINOPHILS (test code = 1012) 2.5 % BASOPHILS (test code = 1013) 0.7 % IMMATURE GRANYLOCYTES (test code = 1036) 0.2 % NUCLEATED RBCS (test code = 1065) 0.0 /100WBC'S PLATELET COUNT (test code = 1015) 139 K/UL ABSOLUTE NEUTROPHILS (test c ode = 1066) 4.71 K/UL ABSOLUTE LYMPHOCYTES (test c ode = 1067) 2.57 K/UL ABSOLUTE MONOCYTES (test cod e = 1068) 0.60 K/UL ABSOLUTE EOSINOPHILS (test c ode = 1040) 0.20 K/UL ABSOLUTE BASOPHILS (test cod e = 1069) 0.06 K/UL ABS IMMATURE GRANULOCYTES (t est code = 1020) 0.02 K/UL ABS NUCLEATED RBCS (test cod e = 69721) 0.00 K/UL COMMENTS (test code = 1016) (NOTE) CBC W/AUTO [id number] 00:00:00* Test Item Value Reference Range Interpretation Comme nts WBC (test code = 1001) 8.2 K/UL RBC (test code = 1002) 4.45 M/UL HEMOGLOBIN (test code = 1003) 12.4 G/DL HEMATOCRIT (test code = 1004) 37.7 % MCV (test code = 1005) 84.7 fL MCH (test code = 1006) 27.9 PG MCHC (test code = 1007) 32.9 G/DL RDW (test code = 1038) 13.0 % NEUTROPHILS (test code = 1008) 57.7 % LYMPHOCYTES (test code = 1010) 31.5 % MONOCYTES (test code = 1011) 7.4 % EOSINOPHILS (test code = 1012) 2.5 % BASOPHILS (test code = 1013) 0.7 % IMMATURE GRANYLOCYTES (test code = 1036) 0.2 % NUCLEATED RBCS (test code = 1065) 0.0 /100WBC'S PLATELET COUNT (test code = 1015) 139 K/UL ABSOLUTE NEUTROPHILS (test c ode = 1066) 4.71 K/UL ABSOLUTE LYMPHOCYTES (test c ode = 1067) 2.57 K/UL ABSOLUTE MONOCYTES (test cod e = 1068) 0.60 K/UL ABSOLUTE EOSINOPHILS (test c ode = 1040) 0.20 K/UL ABSOLUTE BASOPHILS (test cod e = 1069) 0.06 K/UL ABS IMMATURE GRANULOCYTES (t est code = 1020) 0.02 K/UL ABS NUCLEATED RBCS (test cod e = 09890) 0.00 K/UL COMMENTS (test code = 1016) (NOTE) HEMOGLOBIN [id number] 00:00:00* Test Item Value Reference Range Interpretation Comme nts HEMOGLOBIN A1c (test code = 47181) 7.0 % HEMOGLOBIN [id number] 00:00:00* Test Item Value Reference Range Interpretation Comme nts HEMOGLOBIN A1c (test code = 95343) 7.0 % COMPREHENSIVE METABOLIC [id number] 00:00:00* Test Item Value Reference Range Interpretation Comme nts GLUCOSE (test code = 2217) 228 MG/DL BUN (test code = 2208) 18 MG/DL CREATININE (test code = 2214) 0.60 MG/DL eGFR (2020 CKD-EPI) (test code = 46742) 101 ML/MIN/1.73 CALC BUN/CREAT (test code = 2235) 30 RATIO SODIUM (test code = 2231) 141 MEQ/L POTASSIUM (test code = 2228) 3.8 MEQ/L CHLORIDE (test code = 2215) 102 MEQ/L CARBON DIOXIDE (test code = 2206) 27 MEQ/L CALCIUM (test code = 2209) 10.0 MG/DL PROTEIN, TOTAL (test code = 2229) 7.6 G/DL ALBUMIN (test code = 220) 4.3 G/DL CALC GLOBULIN (test code = 2240) 3.3 G/DL CALC A/G RATIO (test code = 2234) 1.3 RATIO BILIRUBIN, TOTAL (test code = 2206) 0.2 MG/DL ALKALINE PHOSPHATASE (test code = 2203) 200 U/L AST (test code = 2217) 88 U/L ALT (test code = 2218) 134 U/L MICROALBUMIN/CREATININE, RANDOM AND [id number] 00:00:00* Test Item Value Reference Range Interpretation Comme nts CREATININE, URINE, CONC. (te st code = 2072) 66.2 MG/DL ALBUMIN, URINE, RANDOM (test code = 30246) 0.5 MG/DL CALC ALBUMIN/CREAT, RND (lyndsey t code = 99464) 8 MG/G CBC W/AUTO [id number] 00:00:00* Test Item Value Reference Range Interpretation Comme nts WBC (test code = 1001) 8.2 K/UL RBC (test code = 1002) 4.45 M/UL HEMOGLOBIN (test code = 1003) 12.4 G/DL HEMATOCRIT (test code = 1004) 37.7 % MCV (test code = 1005) 84.7 fL MCH (test code = 1006) 27.9 PG MCHC (test code = 1007) 32.9 G/DL RDW (test code = 1038) 13.0 % NEUTROPHILS (test code = 1008) 57.7 % LYMPHOCYTES (test code = 1010) 31.5 % MONOCYTES (test code = 1011) 7.4 % EOSINOPHILS (test code = 1012) 2.5 % BASOPHILS (test code = 1013) 0.7 % IMMATURE GRANYLOCYTES (test code = 1036) 0.2 % NUCLEATED RBCS (test code = 1065) 0.0 /100WBC'S PLATELET COUNT (test code = 1015) 139 K/UL ABSOLUTE NEUTROPHILS (test c ode = 1066) 4.71 K/UL ABSOLUTE LYMPHOCYTES (test c ode = 1067) 2.57 K/UL ABSOLUTE MONOCYTES (test cod e = 1068) 0.60 K/UL ABSOLUTE EOSINOPHILS (test c ode = 1040) 0.20 K/UL ABSOLUTE BASOPHILS (test cod e = 1069) 0.06 K/UL ABS IMMATURE GRANULOCYTES (t est code = 1020) 0.02 K/UL ABS NUCLEATED RBCS (test cod e = 49898) 0.00 K/UL COMMENTS (test code = 1016) (NOTE) CBC W/AUTO [id number] 00:00:00* Test Item Value Reference Range Interpretation Comme nts WBC (test code = 1001) 8.2 K/UL RBC (test code = 1002) 4.45 M/UL HEMOGLOBIN (test code = 1003) 12.4 G/DL HEMATOCRIT (test code = 1004) 37.7 % MCV (test code = 1005) 84.7 fL MCH (test code = 1006) 27.9 PG MCHC (test code = 1007) 32.9 G/DL RDW (test code = 1038) 13.0 % NEUTROPHILS (test code = 1008) 57.7 % LYMPHOCYTES (test code = 1010) 31.5 % MONOCYTES (test code = 1011) 7.4 % EOSINOPHILS (test code = 1012) 2.5 % BASOPHILS (test code = 1013) 0.7 % IMMATURE GRANYLOCYTES (test code = 1036) 0.2 % NUCLEATED RBCS (test code = 1065) 0.0 /100WBC'S PLATELET COUNT (test code = 1015) 139 K/UL ABSOLUTE NEUTROPHILS (test c ode = 1066) 4.71 K/UL ABSOLUTE LYMPHOCYTES (test c ode = 1067) 2.57 K/UL ABSOLUTE MONOCYTES (test cod e = 1068) 0.60 K/UL ABSOLUTE EOSINOPHILS (test c ode = 1040) 0.20 K/UL ABSOLUTE BASOPHILS (test cod e = 1069) 0.06 K/UL ABS IMMATURE GRANULOCYTES (t est code = 1020) 0.02 K/UL ABS NUCLEATED RBCS (test cod e = 28384) 0.00 K/UL COMMENTS (test code = 1016) (NOTE) CBC W/AUTO [id number] 00:00:00* Test Item Value Reference Range Interpretation Comme nts WBC (test code = 1001) 8.2 K/UL RBC (test code = 1002) 4.45 M/UL HEMOGLOBIN (test code = 1003) 12.4 G/DL HEMATOCRIT (test code = 1004) 37.7 % MCV (test code = 1005) 84.7 fL MCH (test code = 1006) 27.9 PG MCHC (test code = 1007) 32.9 G/DL RDW (test code = 1038) 13.0 % NEUTROPHILS (test code = 1008) 57.7 % LYMPHOCYTES (test code = 1010) 31.5 % MONOCYTES (test code = 1011) 7.4 % EOSINOPHILS (test code = 1012) 2.5 % BASOPHILS (test code = 1013) 0.7 % IMMATURE GRANYLOCYTES (test code = 1036) 0.2 % NUCLEATED RBCS (test code = 1065) 0.0 /100WBC'S PLATELET COUNT (test code = 1015) 139 K/UL ABSOLUTE NEUTROPHILS (test c ode = 1066) 4.71 K/UL ABSOLUTE LYMPHOCYTES (test c ode = 1067) 2.57 K/UL ABSOLUTE MONOCYTES (test cod e = 1068) 0.60 K/UL ABSOLUTE EOSINOPHILS (test c ode = 1040) 0.20 K/UL ABSOLUTE BASOPHILS (test cod e = 1069) 0.06 K/UL ABS IMMATURE GRANULOCYTES (t est code = 1020) 0.02 K/UL ABS NUCLEATED RBCS (test cod e = 27977) 0.00 K/UL COMMENTS (test code = 1016) (NOTE) HEMOGLOBIN [id number] 00:00:00* Test Item Value Reference Range Interpretation Comme nts HEMOGLOBIN A1c (test code = 46706) 7.0 % HEMOGLOBIN [id number] 00:00:00* Test Item Value Reference Range Interpretation Comme nts HEMOGLOBIN A1c (test code = 47888) 7.0 % HEMOGLOBIN [id number] 00:00:00* Test Item Value Reference Range Interpretation Comme nts HEMOGLOBIN A1c (test code = 55880) 7.0 % COMPREHENSIVE METABOLIC [id number] 00:00:00* Test Item Value Reference Range Interpretation Comme nts GLUCOSE (test code = 2217) 228 MG/DL BUN (test code = 2208) 18 MG/DL CREATININE (test code = 2214) 0.60 MG/DL eGFR (2020 CKD-EPI) (test code = 71759) 101 ML/MIN/1.73 CALC BUN/CREAT (test code = 2235) 30 RATIO SODIUM (test code = 2231) 141 MEQ/L POTASSIUM (test code = 2228) 3.8 MEQ/L CHLORIDE (test code = 2215) 102 MEQ/L CARBON DIOXIDE (test code = 2206) 27 MEQ/L CALCIUM (test code = 2209) 10.0 MG/DL PROTEIN, TOTAL (test code = 2229) 7.6 G/DL ALBUMIN (test code = 2201) 4.3 G/DL CALC GLOBULIN (test code = 2240) 3.3 G/DL CALC A/G RATIO (test code = 2234) 1.3 RATIO BILIRUBIN, TOTAL (test code = 2207) 0.2 MG/DL ALKALINE PHOSPHATASE (test code = 2204) 200 U/L AST (test code = 2218) 88 U/L ALT (test code = 2219) 134 U/L COMPREHENSIVE METABOLIC [id number] 00:00:00* Test Item Value Reference Range Interpretation Comme nts GLUCOSE (test code = 2217) 228 MG/DL BUN (test code = 2208) 18 MG/DL CREATININE (test code = 2214) 0.60 MG/DL eGFR (2020 CKD-EPI) (test code = 70440) 101 ML/MIN/1.73 CALC BUN/CREAT (test code = 2235) 30 RATIO SODIUM (test code = 2231) 141 MEQ/L POTASSIUM (test code = 2228) 3.8 MEQ/L CHLORIDE (test code = 2215) 102 MEQ/L CARBON DIOXIDE (test code = 2206) 27 MEQ/L CALCIUM (test code = 2209) 10.0 MG/DL PROTEIN, TOTAL (test code = 2229) 7.6 G/DL ALBUMIN (test code = 2201) 4.3 G/DL CALC GLOBULIN (test code = 2240) 3.3 G/DL CALC A/G RATIO (test code = 2234) 1.3 RATIO BILIRUBIN, TOTAL (test code = 2207) 0.2 MG/DL ALKALINE PHOSPHATASE (test code = 2204) 200 U/L AST (test code = 2218) 88 U/L ALT (test code = 2219) 134 U/L HEMOGLOBIN [id number] 00:00:00* Test Item Value Reference Range Interpretation Comme nts HEMOGLOBIN A1c (test code = 72291) 8.1 % HEMOGLOBIN [id number] 00:00:00* Test Item Value Reference Range Interpretation Comme nts HEMOGLOBIN A1c (test code = 48748) 8.1 % HEMOGLOBIN [id number] 00:00:00* Test Item Value Reference Range Interpretation Comme nts HEMOGLOBIN A1c (test code = 51092) 8.1 % HEMOGLOBIN [id number] 00:00:00* Test Item Value Reference Range Interpretation Comme nts HEMOGLOBIN A1c (test code = 09130) 8.1 % HEMOGLOBIN [id number] 00:00:00* Test Item Value Reference Range Interpretation Comme nts HEMOGLOBIN A1c (test code = 88872) 8.1 % CULTURE, [id number] 00:00:00* Test Item Value Reference Range Interpretation Comme nts CULTURE, URINE (test code = 20226) SPECIMEN NUMBER: [id number] CULTURE, [id number] 00:00:00* Test Item Value Reference Range Interpretation Comme nts CULTURE, URINE (test code = 35056) SPECIMEN NUMBER: [id number] CULTURE, [id number] 00:00:00* Test Item Value Reference Range Interpretation Comme nts CULTURE, URINE (test code = 34688) SPECIMEN NUMBER: [id number] HEMOGLOBIN [id number] 00:00:00* Test Item Value Reference Range Interpretation Comme nts HEMOGLOBIN A1c (test code = 52311) 8.4 % HEMOGLOBIN [id number] 00:00:00* Test Item Value Reference Range Interpretation Comme nts HEMOGLOBIN A1c (test code = 58405) 8.4 % LIPID [id number] 00:00:00* Test Item Value Reference Range Interpretation Comme nts CHOLESTEROL (test code = 2210) 174 MG/DL TRIGLYCERIDES (test code = 2232) 73 MG/DL HDL CHOLESTEROL (test code = 2220) 68 MG/DL CALC LDL CHOL (test code = 2237) 90 MG/DL RISK RATIO LDL/HDL (test cod e = 2238) 1.32 RATIO COMPREHENSIVE METABOLIC [id number] 00:00:00* Test Item Value Reference Range Interpretation Comme nts GLUCOSE (test code = 2217) 126 MG/DL BUN (test code = 2208) 13 MG/DL CREATININE (test code = 2214) 0.41 MG/DL eGFR AMER. (test cod e = 96616) 129 ML/MIN/1.73 eGFR NON- AMER. (test code = 36002) 112 ML/MIN/1.73 CALC BUN/CREAT (test code = 2235) 32 RATIO SODIUM (test code = 2231) 142 MEQ/L POTASSIUM (test code = 2228) 3.9 MEQ/L CHLORIDE (test code = 2215) 103 MEQ/L CARBON DIOXIDE (test code = 2206) 26 MEQ/L CALCIUM (test code = 2209) 9.8 MG/DL PROTEIN, TOTAL (test code = 2229) 7.2 G/DL ALBUMIN (test code = 2201) 4.5 G/DL CALC GLOBULIN (test code = 2240) 2.7 G/DL CALC A/G RATIO (test code = 2234) 1.7 RATIO BILIRUBIN, TOTAL (test code = 2207) 0.4 MG/DL ALKALINE PHOSPHATASE (test code = 2204) 121 U/L AST (test code = 2218) 26 U/L ALT (test code = 2219) 22 U/L HEMOGLOBIN [id number] 00:00:00* Test Item Value Reference Range Interpretation Comme nts HEMOGLOBIN A1c (test code = 52253) 8.4 % HEMOGLOBIN [id number] 00:00:00* Test Item Value Reference Range Interpretation Comme nts HEMOGLOBIN A1c (test code = 73743) 8.4 % HEMOGLOBIN [id number] 00:00:00* Test Item Value Reference Range Interpretation Comme nts HEMOGLOBIN A1c (test code = 40480) 8.4 % LIPID [id number] 00:00:00* Test Item Value Reference Range Interpretation Comme nts CHOLESTEROL (test code = 2210) 174 MG/DL TRIGLYCERIDES (test code = 2232) 73 MG/DL HDL CHOLESTEROL (test code = 2220) 68 MG/DL CALC LDL CHOL (test code = 2237) 90 MG/DL RISK RATIO LDL/HDL (test cod e = 2238) 1.32 RATIO LIPID [id number] 00:00:00* Test Item Value Reference Range Interpretation Comme nts CHOLESTEROL (test code = 2210) 174 MG/DL TRIGLYCERIDES (test code = 2232) 73 MG/DL HDL CHOLESTEROL (test code = 2220) 68 MG/DL CALC LDL CHOL (test code = 2237) 90 MG/DL RISK RATIO LDL/HDL (test cod e = 2238) 1.32 RATIO COMPREHENSIVE METABOLIC [id number] 00:00:00* Test Item Value Reference Range Interpretation Comme nts GLUCOSE (test code = 2217) 126 MG/DL BUN (test code = 2208) 13 MG/DL CREATININE (test code = 2214) 0.41 MG/DL eGFR AMER. (test cod e = 16043) 129 ML/MIN/1.73 eGFR NON- AMER. (test code = 88164) 112 ML/MIN/1.73 CALC BUN/CREAT (test code = 2235) 32 RATIO SODIUM (test code = 2231) 142 MEQ/L POTASSIUM (test code = 2228) 3.9 MEQ/L CHLORIDE (test code = 2215) 103 MEQ/L CARBON DIOXIDE (test code = 2206) 26 MEQ/L CALCIUM (test code = 2209) 9.8 MG/DL PROTEIN, TOTAL (test code = 2229) 7.2 G/DL ALBUMIN (test code = 2201) 4.5 G/DL CALC GLOBULIN (test code = 2240) 2.7 G/DL CALC A/G RATIO (test code = 2234) 1.7 RATIO BILIRUBIN, TOTAL (test code = 2207) 0.4 MG/DL ALKALINE PHOSPHATASE (test code = 2204) 121 U/L AST (test code = 2218) 26 U/L ALT (test code = 2219) 22 U/L COMPREHENSIVE METABOLIC [id number] 00:00:00* Test Item Value Reference Range Interpretation Comme nts GLUCOSE (test code = 2217) 126 MG/DL BUN (test code = 2208) 13 MG/DL CREATININE (test code = 2214) 0.41 MG/DL eGFR AMER. (test cod e = 19552) 129 ML/MIN/1.73 eGFR NON- AMER. (test code = 30771) 112 ML/MIN/1.73 CALC BUN/CREAT (test code = 2235) 32 RATIO SODIUM (test code = 2231) 142 MEQ/L POTASSIUM (test code = 2228) 3.9 MEQ/L CHLORIDE (test code = 2215) 103 MEQ/L CARBON DIOXIDE (test code = 2206) 26 MEQ/L CALCIUM (test code = 2209) 9.8 MG/DL PROTEIN, TOTAL (test code = 2229) 7.2 G/DL ALBUMIN (test code = 2201) 4.5 G/DL CALC GLOBULIN (test code = 2240) 2.7 G/DL CALC A/G RATIO (test code = 2234) 1.7 RATIO BILIRUBIN, TOTAL (test code = 2207) 0.4 MG/DL ALKALINE PHOSPHATASE (test code = 2204) 121 U/L AST (test code = 2218) 26 U/L ALT (test code = 2219) 22 U/L LIPID [id number] 00:00:00* Test Item Value Reference Range Interpretation Comme nts CHOLESTEROL (test code = 2210) 245 MG/DL TRIGLYCERIDES (test code = 2232) 82 MG/DL HDL CHOLESTEROL (test code = 2220) 77 MG/DL CALC LDL CHOL (test code = 2237) 149 MG/DL RISK RATIO LDL/HDL (test cod e = 2238) 1.94 RATIO LIPID [id number] 00:00:00* Test Item Value Reference Range Interpretation Comme nts CHOLESTEROL (test code = 2210) 245 MG/DL TRIGLYCERIDES (test code = 2232) 82 MG/DL HDL CHOLESTEROL (test code = 2220) 77 MG/DL CALC LDL CHOL (test code = 2237) 149 MG/DL RISK RATIO LDL/HDL (test cod e = 2238) 1.94 RATIO MICROALBUMIN/CREATININE, RANDOM AND [id number] 00:00:00* Test Item Value Reference Range Interpretation Comme nts CREATININE, URINE, CONC. (te st code = 2072) 89.3 MG/DL ALBUMIN, URINE, RANDOM (test code = 93157) 1.2 MG/DL CALC ALBUMIN/CREAT, RND (lyndsey t code = 97870) 13 MG/G MICROALBUMIN/CREATININE, RANDOM AND [id number] 00:00:00* Test Item Value Reference Range Interpretation Comme nts CREATININE, URINE, CONC. (te st code = 2072) 89.3 MG/DL ALBUMIN, URINE, RANDOM (test code = 39791) 1.2 MG/DL CALC ALBUMIN/CREAT, RND (lyndsey t code = 78394) 13 MG/G HEMOGLOBIN [id number] 00:00:00* Test Item Value Reference Range Interpretation Comme nts HEMOGLOBIN A1c (test code = 82211) 7.7 % HEMOGLOBIN [id number] 00:00:00* Test Item Value Reference Range Interpretation Comme nts HEMOGLOBIN A1c (test code = 49271) 7.7 % CBC W/AUTO [id number] 00:00:00* Test Item Value Reference Range Interpretation Comme nts WBC (test code = 1001) 7.9 K/UL RBC (test code = 1002) 4.65 M/UL HEMOGLOBIN (test code = 1003) 13.3 G/DL HEMATOCRIT (test code = 1004) 39.3 % MCV (test code = 1005) 84.5 fL MCH (test code = 1006) 28.6 PG MCHC (test code = 1007) 33.8 G/DL RDW (test code = 1038) 12.8 % NEUTROPHILS (test code = 1008) 60.0 % LYMPHOCYTES (test code = 1010) 30.4 % MONOCYTES (test code = 1011) 6.9 % EOSINOPHILS (test code = 1012) 1.8 % BASOPHILS (test code = 1013) 0.9 % PLATELET COUNT (test code = 1015) 332 K/UL CBC W/AUTO [id number] 00:00:00* Test Item Value Reference Range Interpretation Comme nts WBC (test code = 1001) 7.9 K/UL RBC (test code = 1002) 4.65 M/UL HEMOGLOBIN (test code = 1003) 13.3 G/DL HEMATOCRIT (test code = 1004) 39.3 % MCV (test code = 1005) 84.5 fL MCH (test code = 1006) 28.6 PG MCHC (test code = 1007) 33.8 G/DL RDW (test code = 1038) 12.8 % NEUTROPHILS (test code = 1008) 60.0 % LYMPHOCYTES (test code = 1010) 30.4 % MONOCYTES (test code = 1011) 6.9 % EOSINOPHILS (test code = 1012) 1.8 % BASOPHILS (test code = 1013) 0.9 % PLATELET COUNT (test code = 1015) 332 K/UL COMPREHENSIVE METABOLIC [id number] 00:00:00* Test Item Value Reference Range Interpretation Comme nts GLUCOSE (test code = 2217) 171 MG/DL BUN (test code = 2208) 16 MG/DL CREATININE (test code = 2214) 0.50 MG/DL eGFR AMER. (test cod e = 73244) 121 ML/MIN/1.73 eGFR NON- AMER. (test code = 37985) 104 ML/MIN/1.73 CALC BUN/CREAT (test code = 2235) 32 RATIO SODIUM (test code = 2231) 141 MEQ/L POTASSIUM (test code = 2228) 4.5 MEQ/L CHLORIDE (test code = 2215) 101 MEQ/L CARBON DIOXIDE (test code = 2206) 28 MEQ/L CALCIUM (test code = 2209) 9.6 MG/DL PROTEIN, TOTAL (test code = 2229) 7.3 G/DL ALBUMIN (test code = 2201) 4.4 G/DL CALC GLOBULIN (test code = 2240) 2.9 G/DL CALC A/G RATIO (test code = 2234) 1.5 RATIO BILIRUBIN, TOTAL (test code = 2207) 0.3 MG/DL ALKALINE PHOSPHATASE (test code = 2204) 97 U/L AST (test code = 2218) 17 U/L ALT (test code = 2219) 18 U/L LIPID [id number] 00:00:00* Test Item Value Reference Range Interpretation Comme nts CHOLESTEROL (test code = 2210) 245 MG/DL TRIGLYCERIDES (test code = 2232) 82 MG/DL HDL CHOLESTEROL (test code = 2220) 77 MG/DL CALC LDL CHOL (test code = 2237) 149 MG/DL RISK RATIO LDL/HDL (test cod e = 2238) 1.94 RATIO MICROALBUMIN/CREATININE, RANDOM AND [id number] 00:00:00* Test Item Value Reference Range Interpretation Comme nts CREATININE, URINE, CONC. (te st code = 2072) 89.3 MG/DL ALBUMIN, URINE, RANDOM (test code = 31936) 1.2 MG/DL CALC ALBUMIN/CREAT, RND (lyndsey t code = 60407) 13 MG/G HEMOGLOBIN [id number] 00:00:00* Test Item Value Reference Range Interpretation Comme nts HEMOGLOBIN A1c (test code = 88486) 7.7 % HEMOGLOBIN [id number] 00:00:00* Test Item Value Reference Range Interpretation Comme nts HEMOGLOBIN A1c (test code = 94071) 7.7 % HEMOGLOBIN [id number] 00:00:00* Test Item Value Reference Range Interpretation Comme nts HEMOGLOBIN A1c (test code = 98478) 7.7 % CBC W/AUTO [id number] 00:00:00* Test Item Value Reference Range Interpretation Comme nts WBC (test code = 1001) 7.9 K/UL RBC (test code = 1002) 4.65 M/UL HEMOGLOBIN (test code = 1003) 13.3 G/DL HEMATOCRIT (test code = 1004) 39.3 % MCV (test code = 1005) 84.5 fL MCH (test code = 1006) 28.6 PG MCHC (test code = 1007) 33.8 G/DL RDW (test code = 1038) 12.8 % NEUTROPHILS (test code = 1008) 60.0 % LYMPHOCYTES (test code = 1010) 30.4 % MONOCYTES (test code = 1011) 6.9 % EOSINOPHILS (test code = 1012) 1.8 % BASOPHILS (test code = 1013) 0.9 % PLATELET COUNT (test code = 1015) 332 K/UL CBC W/AUTO [id number] 00:00:00* Test Item Value Reference Range Interpretation Comme nts WBC (test code = 1001) 7.9 K/UL RBC (test code = 1002) 4.65 M/UL HEMOGLOBIN (test code = 1003) 13.3 G/DL HEMATOCRIT (test code = 1004) 39.3 % MCV (test code = 1005) 84.5 fL MCH (test code = 1006) 28.6 PG MCHC (test code = 1007) 33.8 G/DL RDW (test code = 1038) 12.8 % NEUTROPHILS (test code = 1008) 60.0 % LYMPHOCYTES (test code = 1010) 30.4 % MONOCYTES (test code = 1011) 6.9 % EOSINOPHILS (test code = 1012) 1.8 % BASOPHILS (test code = 1013) 0.9 % PLATELET COUNT (test code = 1015) 332 K/UL CBC W/AUTO [id number] 00:00:00* Test Item Value Reference Range Interpretation Comme nts WBC (test code = 1001) 7.9 K/UL RBC (test code = 1002) 4.65 M/UL HEMOGLOBIN (test code = 1003) 13.3 G/DL HEMATOCRIT (test code = 1004) 39.3 % MCV (test code = 1005) 84.5 fL MCH (test code = 1006) 28.6 PG MCHC (test code = 1007) 33.8 G/DL RDW (test code = 1038) 12.8 % NEUTROPHILS (test code = 1008) 60.0 % LYMPHOCYTES (test code = 1010) 30.4 % MONOCYTES (test code = 1011) 6.9 % EOSINOPHILS (test code = 1012) 1.8 % BASOPHILS (test code = 1013) 0.9 % PLATELET COUNT (test code = 1015) 332 K/UL COMPREHENSIVE METABOLIC [id number] 00:00:00* Test Item Value Reference Range Interpretation Comme nts GLUCOSE (test code = 2217) 171 MG/DL BUN (test code = 2208) 16 MG/DL CREATININE (test code = 2214) 0.50 MG/DL eGFR AMER. (test cod e = 00129) 121 ML/MIN/1.73 eGFR NON- AMER. (test code = 36137) 104 ML/MIN/1.73 CALC BUN/CREAT (test code = 2235) 32 RATIO SODIUM (test code = 2231) 141 MEQ/L POTASSIUM (test code = 2228) 4.5 MEQ/L CHLORIDE (test code = 2215) 101 MEQ/L CARBON DIOXIDE (test code = 2206) 28 MEQ/L CALCIUM (test code = 2209) 9.6 MG/DL PROTEIN, TOTAL (test code = 2229) 7.3 G/DL ALBUMIN (test code = 2201) 4.4 G/DL CALC GLOBULIN (test code = 2240) 2.9 G/DL CALC A/G RATIO (test code = 2234) 1.5 RATIO BILIRUBIN, TOTAL (test code = 2207) 0.3 MG/DL ALKALINE PHOSPHATASE (test code = 2204) 97 U/L AST (test code = 2218) 17 U/L ALT (test code = 2219) 18 U/L COMPREHENSIVE METABOLIC [id number] 00:00:00* Test Item Value Reference Range Interpretation Comme nts GLUCOSE (test code = 2217) 171 MG/DL BUN (test code = 2208) 16 MG/DL CREATININE (test code = 2214) 0.50 MG/DL eGFR AMER. (test cod e = 90604) 121 ML/MIN/1.73 eGFR NON- AMER. (test code = 66791) 104 ML/MIN/1.73 CALC BUN/CREAT (test code = 2235) 32 RATIO SODIUM (test code = 2231) 141 MEQ/L POTASSIUM (test code = 2228) 4.5 MEQ/L CHLORIDE (test code = 2215) 101 MEQ/L CARBON DIOXIDE (test code = 2206) 28 MEQ/L CALCIUM (test code = 2209) 9.6 MG/DL PROTEIN, TOTAL (test code = 2229) 7.3 G/DL ALBUMIN (test code = 2201) 4.4 G/DL CALC GLOBULIN (test code = 2240) 2.9 G/DL CALC A/G RATIO (test code = 2234) 1.5 RATIO BILIRUBIN, TOTAL (test code = 2207) 0.3 MG/DL ALKALINE PHOSPHATASE (test code = 2204) 97 U/L AST (test code = 2218) 17 U/L ALT (test code = 2219) 18 U/L MICROALBUMIN, [id number] 00:00:00* Test Item Value Reference Range Interpretation Comme nts ALBUMIN, URINE, RANDOM (test code = 68365) 0.9 MG/DL MICROALBUMIN, [id number] 00:00:00* Test Item Value Reference Range Interpretation Comme nts ALBUMIN, URINE, RANDOM (test code = 23239) 0.9 MG/DL HEMOGLOBIN [id number] 00:00:00* Test Item Value Reference Range Interpretation Comme nts HEMOGLOBIN A1c (test code = 98824) 8.5 % HEMOGLOBIN [id number] 00:00:00* Test Item Value Reference Range Interpretation Comme nts HEMOGLOBIN A1c (test code = 20889) 8.5 % LIPID [id number] 00:00:00* Test Item Value Reference Range Interpretation Comme nts CHOLESTEROL (test code = 2210) 235 MG/DL TRIGLYCERIDES (test code = 2232) 146 MG/DL HDL CHOLESTEROL (test code = 2220) 57 MG/DL CALC LDL CHOL (test code = 2237) 150 MG/DL RISK RATIO LDL/HDL (test cod e = 2238) 2.63 RATIO COMPREHENSIVE METABOLIC [id number] 00:00:00* Test Item Value Reference Range Interpretation Comme nts GLUCOSE (test code = 2217) 153 MG/DL BUN (test code = 2208) 14 MG/DL CREATININE (test code = 2214) 0.46 MG/DL eGFR AMER. (test cod e = 67012) 125 ML/MIN/1.73 eGFR NON- AMER. (test code = 94797) 108 ML/MIN/1.73 CALC BUN/CREAT (test code = 2235) 30 RATIO SODIUM (test code = 2231) 136 MEQ/L POTASSIUM (test code = 2228) 4.0 MEQ/L CHLORIDE (test code = 2215) 98 MEQ/L CARBON DIOXIDE (test code = 2206) 26 MEQ/L CALCIUM (test code = 2209) 9.9 MG/DL PROTEIN, TOTAL (test code = 2229) 7.1 G/DL ALBUMIN (test code = 2201) 4.4 G/DL CALC GLOBULIN (test code = 2240) 2.7 G/DL CALC A/G RATIO (test code = 2234) 1.6 RATIO BILIRUBIN, TOTAL (test code = 2207) 0.2 MG/DL ALKALINE PHOSPHATASE (test code = 2204) 91 U/L AST (test code = 2218) 16 U/L ALT (test code = 2219) 20 U/L MICROALBUMIN, [id number] 00:00:00* Test Item Value Reference Range Interpretation Comme nts ALBUMIN, URINE, RANDOM (test code = 35656) 0.9 MG/DL HEMOGLOBIN [id number] 00:00:00* Test Item Value Reference Range Interpretation Comme nts HEMOGLOBIN A1c (test code = 41112) 8.5 % HEMOGLOBIN [id number] 00:00:00* Test Item Value Reference Range Interpretation Comme nts HEMOGLOBIN A1c (test code = 83782) 8.5 % HEMOGLOBIN [id number] 00:00:00* Test Item Value Reference Range Interpretation Comme nts HEMOGLOBIN A1c (test code = 61852) 8.5 % LIPID [id number] 00:00:00* Test Item Value Reference Range Interpretation Comme nts CHOLESTEROL (test code = 2210) 235 MG/DL TRIGLYCERIDES (test code = 2232) 146 MG/DL HDL CHOLESTEROL (test code = 2220) 57 MG/DL CALC LDL CHOL (test code = 2237) 150 MG/DL RISK RATIO LDL/HDL (test cod e = 2238) 2.63 RATIO LIPID [id number] 00:00:00* Test Item Value Reference Range Interpretation Comme nts CHOLESTEROL (test code = 2210) 235 MG/DL TRIGLYCERIDES (test code = 2232) 146 MG/DL HDL CHOLESTEROL (test code = 2220) 57 MG/DL CALC LDL CHOL (test code = 2237) 150 MG/DL RISK RATIO LDL/HDL (test cod e = 2238) 2.63 RATIO COMPREHENSIVE METABOLIC [id number] 00:00:00* Test Item Value Reference Range Interpretation Comme nts GLUCOSE (test code = 2217) 153 MG/DL BUN (test code = 2208) 14 MG/DL CREATININE (test code = 2214) 0.46 MG/DL eGFR AMER. (test cod e = 07990) 125 ML/MIN/1.73 eGFR NON- AMER. (test code = 79680) 108 ML/MIN/1.73 CALC BUN/CREAT (test code = 2235) 30 RATIO SODIUM (test code = 2231) 136 MEQ/L POTASSIUM (test code = 2228) 4.0 MEQ/L CHLORIDE (test code = 2215) 98 MEQ/L CARBON DIOXIDE (test code = 2206) 26 MEQ/L CALCIUM (test code = 2209) 9.9 MG/DL PROTEIN, TOTAL (test code = 2229) 7.1 G/DL ALBUMIN (test code = 2201) 4.4 G/DL CALC GLOBULIN (test code = 2240) 2.7 G/DL CALC A/G RATIO (test code = 2234) 1.6 RATIO BILIRUBIN, TOTAL (test code = 2207) 0.2 MG/DL ALKALINE PHOSPHATASE (test code = 2204) 91 U/L AST (test code = 2218) 16 U/L ALT (test code = 2219) 20 U/L COMPREHENSIVE METABOLIC [id number] 00:00:00* Test Item Value Reference Range Interpretation Comme nts GLUCOSE (test code = 2217) 153 MG/DL BUN (test code = 2208) 14 MG/DL CREATININE (test code = 2214) 0.46 MG/DL eGFR AMER. (test cod e = 94932) 125 ML/MIN/1.73 eGFR NON- AMER. (test code = 26483) 108 ML/MIN/1.73 CALC BUN/CREAT (test code = 2235) 30 RATIO SODIUM (test code = 2231) 136 MEQ/L POTASSIUM (test code = 2228) 4.0 MEQ/L CHLORIDE (test code = 2215) 98 MEQ/L CARBON DIOXIDE (test code = 2206) 26 MEQ/L CALCIUM (test code = 2209) 9.9 MG/DL PROTEIN, TOTAL (test code = 2229) 7.1 G/DL ALBUMIN (test code = 2201) 4.4 G/DL CALC GLOBULIN (test code = 2240) 2.7 G/DL CALC A/G RATIO (test code = 2234) 1.6 RATIO BILIRUBIN, TOTAL (test code = 2207) 0.2 MG/DL ALKALINE PHOSPHATASE (test code = 2204) 91 U/L AST (test code = 2218) 16 U/L ALT (test code = 2219) 20 U/L
--- NOTE | 2023-02-09 07:57 | RAD REPORT ---
EXAM DESCRIPTION: CT - Head C Spine Mpr Wo Con - 02/09/2023 7:31 am CLINICAL HISTORY: Head and neck injury status post fall. Head and neck pain COMPARISON: None. TECHNIQUE: Computed axial tomography of the head and cervical spine was obtained. Sagittal and coronal reconstruction was performed. All CT scans are performed using dose optimization technique as appropriate and may include automated exposure control or mA/KV adjustment according to patient size. FINDINGS: Left parietal scalp hematoma. An intracranial bleed is not seen. The ventricles are normal in caliber. No significant hypodensity within the brain. An extra-axial fluid collection is not noted. Fluid within the visualized sinuses and mastoids is not seen A cervical fracture is not visualized. No dislocation is noted. IMPRESSION: No acute intracranial abnormality is seen. A cervical fracture is not visualized. If the patient continues to have symptoms to suggest intracranial /spinal cord pathology then MRI wou ld be recommended
--- NOTE | 2023-02-09 08:03 | ER ---
Nurse's Notes [facility] Name: Martha Wilson Age: 63 yrs Sex: Female : 1960 Arrival Date: 02/09/2023 Time: 06:48 Bed 5 Private MD: Diagnosis: Scalp hematoma, closed head injury, concussion Presentation: 02/09 06:55 Chief complaint: Patient states: fall with left side head pain of 8,onset 0530 this AM. pf1 Patient stated he jacket got hung up in the car door and she fell hitting her left side of head onto the pavement. Patient denies any LOC. Coronavirus screen: Vaccine status: Patient reports receiving the 2nd dose of the covid vaccine. 3 doses of pfizer Client denies travel out of the [place] in the last 14 days. At this time, the client does not indicate any symptoms associated with coronavirus-19. Ebola Screen: Patient negative for fever greater than or equal to 101.5 degrees Fahrenheit, and additional compatible Ebola Virus Disease symptoms. Initial Sepsis Screen: Does the patient meet any 2 criteria? No. Patient's initial sepsis screen is negative. Does the patient have a suspected source of infection? No. Patient's initial sepsis screen is negative. Risk Assessment: Do you want to hurt yourself or someone else? Patient reports no desire to harm self or others. 06:55 Method Of Arrival: Ambulatory pf1 06:55 Acuity: EMERSON 3 pf1 Historical: - Allergies: 07:04 No Known Allergies; pf1 - PMHx: 07:04 diabetes mellitus; Hypertensive disorder; pf1 - PSHx: 07:04 None; pf1 - Immunization history:: Adult Immunizations up to date, Last tetanus immunization: > 10 years ago Flu vaccine is up to date. - Social history:: Smoking status: Patient denies any tobacco usage or history of. Patient/guardian denies using alcohol, street drugs. Screenin:03 [facility] ED Fall Risk Assessment (Adult) History of falling in the last 3 months, iw including since admission Yes- single mechanical fall (1 pt) Score/Fall Risk Level 0 - 2 = Low Risk. Abuse screen: Denies threats or abuse. Denies injuries from another. Nutritional screening: No deficits noted. Tuberculosis screening: No symptoms or risk factors identified. Assessment: 08:03 General: Appears in no apparent distress. Behavior is calm, cooperative. Pain: iw Complains of pain in head. Neuro: Level of Consciousness is awake, alert, obeys commands, Oriented to person, place, time, situation, Moves all extremities. Full function. Vital Signs: 06:55 BP 151 / 79; Pulse 86; Resp 18; Temp 97.5; Pulse Ox 98% on R/A; Weight 70.31 kg; Height pf1 5 ft. 4 in. ; Pain 8/10; 06:55 Body Mass Index 26.61 (70.31 kg, 162.56 cm) pf1 06:55 Pain Scale: Adult pf1 ED Course: 06:50 Patient arrived in ED. jj6 07:04 Triage completed. pf1 07:11 Zak Dunne MD is Attending Physician. sp3 07:33 CT Head C Spine In Process Unspecified. EDMS 08:02 Guillermina Lopez, RN is Primary Nurse. iw 08:03 Patient has correct armband on for positive identification. Provided Education on: . iw 08:03 No provider procedures requiring assistance completed. Patient did not have IV access iw during this emergency room visit. 08:05 Arm band placed on. iw Administered Medications: No medications were administered Medication: 08:03 VIS not applicable for this client. iw Outcome: 08:03 Discharge ordered by . sp3 08:08 Discharged to home ambulatory, iw 08:08 Condition: good 08:08 Discharge instructions given to patient, Instructed on discharge instructions, follow up and referral plans. Demonstrated understanding of instructions, follow-up care, 08:09 Patient left the ED. iw Signatures: Dispatcher [employer] EDDC Guillermina Lopez, RN RN iw Zak Dunne MD MD sp3 Ilene Huerta [email or web address] Monique Monreal RN RN pf1
--- NOTE | 2023-02-09 08:03 | EDPHYS ---
Physician Documentation [facility] Name: Martha Wilson Age: 63 yrs Sex: Female : 1960 Arrival Date: 02/09/2023 Time: 06:48 Bed 5 Private MD: ED Physician Zak Dunne HPI: 02/09 07:55 63-year-old female with history of diabetes, hypertension now presents to the ED with sp3 mechanical ground-level fall while she was getting out of a vehicle her jacket got caught on the door which she fell onto the ground striking the left parietal region with positive LOC reported by patient's . Patient is currently here with daughter. Patient denies neck pain, facial pain, back pain, chest pain, shortness of breath, weakness, altered sensation, memory loss, speech impediment, any other signs or symptoms on ROS at this time. She does endorse a headache only.. Historical: - Allergies: 07:04 No Known Allergies; pf1 - PMHx: 07:04 diabetes mellitus; Hypertensive disorder; pf1 - PSHx: 07:04 None; pf1 - Immunization history:: Adult Immunizations up to date, Last tetanus immunization: > 10 years ago Flu vaccine is up to date. - Social history:: Smoking status: Patient denies any tobacco usage or history of. Patient/guardian denies using alcohol, street drugs. ROS: 07:56 Constitutional: Negative for fever, chills, and weight loss, Eyes: Negative for injury, sp3 pain, redness, and discharge, ENT: Negative for injury, pain, and discharge, Neck: Negative for injury, pain, and swelling, Cardiovascular: Negative for chest pain, palpitations, and edema, Respiratory: Negative for shortness of breath, cough, wheezing, and pleuritic chest pain, Abdomen/GI: Negative for abdominal pain, nausea, vomiting, diarrhea, and constipation, Back: Negative for injury and pain, MS/Extremity: Negative for injury and deformity, Skin: Negative for injury, rash, and discoloration, Psych: Negative for depression, anxiety, suicide ideation, homicidal ideation, and hallucinations, Allergy/Immunology: Negative for hives, rash, and allergies, Endocrine: Negative for neck swelling, polydipsia, polyuria, polyphagia, and marked weight changes, Hematologic/Lymphatic: Negative for swollen nodes, abnormal bleeding, and unusual bruising, 07:56 All other systems are negative, Exam: 07:56 Constitutional: This is a well developed, well nourished patient who is awake, alert, sp3 and in no acute distress. Eyes: Pupils equal round and reactive to light, extra-ocular motions intact. Lids and lashes normal. Conjunctiva and sclera are non-icteric and not injected. Cornea within normal limits. Periorbital areas with no swelling, redness, or edema. ENT: Nares patent. No nasal discharge, no septal abnormalities noted. External auditory canals are clear. Oropharynx with no redness, swelling, or masses, exudates, or evidence of obstruction, uvula midline. Mucous membranes moist. Neck: Trachea midline, no thyromegaly or masses palpated, and no cervical lymphadenopathy. Supple, full range of motion without nuchal rigidity, or vertebral point tenderness. No Meningismus. Chest/axilla: Normal chest wall appearance and motion. Nontender with no deformity. No lesions are appreciated. Cardiovascular: Regular rate and rhythm with a normal S1 and S2. No gallops, murmurs, or rubs. Normal PMI, no JVD. No pulse deficits. Respiratory: Lungs have equal breath sounds bilaterally, clear to auscultation and percussion. No rales, rhonchi or wheezes noted. No increased work of breathing, no retractions or nasal flaring. Abdomen/GI: Soft, non-tender, with normal bowel sounds. No distension or tympany. No guarding or rebound. No evidence of tenderness throughout. Back: No spinal tenderness. No costovertebral tenderness. Full range of motion. Skin: Warm, dry with normal turgor. Normal color with no rashes, no lesions, and no evidence of cellulitis. MS/ Extremity: Pulses equal, no cyanosis. Neurovascular intact. Full, normal range of motion. Neuro: Awake and alert, GCS 15, oriented to person, place, time, and situation. Cranial nerves II-XII grossly intact. Motor strength 5/5 in all extremities. Sensory grossly intact. Cerebellar exam normal. Normal gait. Psych: Awake, alert, with orientation to person, place and time. Behavior, mood, and affect are within normal limits. 07:56 Head/face: Patient has scalp hematoma on the left parietal region approximately 5 cm x 4 cm. Remainder of head and neck exam is normal. Cranial nerves are within normal limits as well. No malocclusion noted.. Vital Signs: 06:55 BP 151 / 79; Pulse 86; Resp 18; Temp 97.5; Pulse Ox 98% on R/A; Weight 70.31 kg; Height pf1 5 ft. 4 in. ; Pain 8/10; 06:55 Body Mass Index 26.61 (70.31 kg, 162.56 cm) pf1 06:55 Pain Scale: Adult pf1 MDM: 07:18 Patient medically screened. sp3 07:57 Data reviewed: vital signs, nurses notes, radiologic studies. ED course: 63-year-old sp3 female with head injury from a mechanical origin. CT scan of the head and C-spine are pending. Differential diagnosis includes hematoma plus minus ICH or fracture though clinically unlikely. If scans are negative, we will safely discharge patient home with general precautions.. 07:58 ED course: CT scan of the head and C-spine are negative. We will safely discharge sp3 patient home at this time.. 02/09 07:18 Order name: CT Head C Spine; Complete Time: 07:58 sp3 Administered Medications: No medications were administered Disposition Summary: 02/09/23 08:03 Discharge Ordered Notes: Location: Home sp3 Condition: Stable sp3 Diagnosis - Scalp hematoma, closed head injury, concussion sp3 Followup: sp3 - With: Private Physician - When: Upon discharge from the Emergency Department - Reason: Continuance of care Discharge Instructions: - Discharge Summary Sheet sp3 - Head Injury, Adult sp3 - Hematoma sp3 Forms: - Work release form hb - Medication Reconciliation Form sp3 - Thank You Letter sp3 - Antibiotic Education sp3 - Prescription Opioid Use sp3 - Patient Portal Instructions sp3 - Leadership Thank You Letter sp3 Signatures: Dispatcher [employer] Zak Jones MD MD sp3 Monique Monreal RN RN pf1
[2023-02-09 08:14] VITALS: BP 151/79; TEMP 97.5; O2SAT 98
== END 2023-02-09 08:09 | disposition home or self-care (01) ==
LOC: ER 06:48 → EDSEX 06:48 → ER 08:09
DX: S06.0X0A Concussion without loss of consciousness, initial encounter (principal)
CPT/HCPCS: 70450; 72125; 99282